=== PATIENT | female | born 1985 | race Caucasian/White ===

== ENCOUNTER 2019-07-29 19:53 | Observation (INO) | payer OTHER ==
[2019-07-29] MEDS ORDERED: Ondansetron INJ* 2 MG/ML VIAL IV ONE (20:25)
[2019-07-29] MEDS ORDERED: Ketorolac INJ* 30 MG/ML 1 ML VIAL IV PUSH ONE (20:25)
[2019-07-29] MEDS ORDERED: NS 0.9% 1000 ML** 1,000 ML IV ONE (20:25)
[2019-07-29 21:24] LABS: ABS Basophils 0.1 10^3/ul (0-0.2); ABS Eosinophils 0.1 10^3/ul (0-0.6); ABS Lymphocytes 1.8 10^3/ul (1.0-4.8); ABS Monocytes 0.6 10^3/ul (0-0.8); ABS Neutrophils 9.2 10^3/ul (1.5-7.7); Eosinophil % 0.8 %; Hematocrit 38 % (35-47); Hemoglobin 13.2 g/dL (12.0-16.0); Lymphocyte % 15.5 %; Mean Corpuscular HGB Conc 35 g/dL (31-36); Mean Corpuscular Hemoglobin 34 pg (27-31); Mean Corpuscular Volume 95 fL (80-97); Mean Platelet Volume 8.4 fL (7.4-10.4); Platelet Count 267 10^3/uL (150-450); Red Blood Count 3.94 10^6 /uL (3.70-4.87); Red Cell Distribution Width 12 % (10-15); White Blood Count 11.8 10^3/uL (3.5-10.8)
[2019-07-29 21:42] LABS: Anion Gap 6 mmol/L (2-11); CO2 Carbon Dioxide 29 mmol/L (22-32); Chloride 101 mmol/L (101-111); Glucose 128 mg/dL (70-100); Potassium 3.6 mmol/L (3.5-5.0); Sodium 136 mmol/L (135-145)
[2019-07-29 21:48] LABS: HCG Pregnancy < 0.60 mIU/mL
[2019-07-29 21:56] LABS: Albumin 4.7 g/dL (3.2-5.2)
[2019-07-29 21:59] LABS: Calcium 9.3 mg/dL (8.6-10.3)
[2019-07-29 22:06] LABS: ALT 11 U/L (7-52); AST 14 U/L (13-39); Alkaline Phosphatase 49 U/L (34-104); BUN/Creatinine Ratio 14.3 (8-20); Blood Urea Nitrogen 14 mg/dL (6-24); C Reactive Protein 1.59 mg/L (<8.01); EGFR African American 79.1 (>60); EGFR Non-African American 65.4 (>60); Globulin 2.4 g/dL (2-4); Total Protein 7.1 g/dL (6.4-8.9)
--- NOTE | 2019-07-29 23:00 | ED ---
Abdominal Pain/Female - HPI Summary HPI Summary: 34-year-old female with no significant past medical history presents to the emergency department today complaining of 8 out of 10 right lower quadrant abdominal pain which began at approximately noon this date. Patient states she has associated nausea without vomiting or fever. Patient has not taken any medication prior to arrival. Patient states she has not had her menses in years due to an IUD. Patient denies other symptoms such as fever, chest pain, vomiting, diarrhea, vaginal bleeding, burning with urination. - History of Current Complaint Chief Complaint: EDAbdPain Stated Complaint: ABD PAIN PER PT Time Seen by Provider: 07/29/19 22:34 Hx Obtained From: Patient Onset/Duration: Sudden Onset Timing: Constant Severity Initially: Moderate Severity Currently: Severe Pain Intensity: 7 Pain Scale Used: 0-10 Numeric Location: Discrete At: RLQ Radiates: No Character: Sharp, Cramping Associated Signs and Symptoms: Positive: Nausea. Negative: Fever, Chest Pain, Back Pain, Urinary Symptoms, Vaginal Bleeding, Vomiting Allergies/Adverse Reactions: Allergies Allergy/AdvReac Type Severity Reaction Status Date / Time No Known Allergies Allergy Verified 06/16/19 11:20 Home Medications: Home Medications SUMAtriptan succinate [Imitrex] 25 mg PO DAILY PRN 07/29/19 [History Confirmed 07/29/19] buPROPion TAB* [Wellbutrin TAB*] 2 tab PO DAILY 07/29/19 [History Confirmed 09/13] oxyCODONE/Acetamin 5/325 MG* [Percocet 5/325 TAB*] 1 tab PO Q6H PRN #8 tab MDD 4 07/30/19 [Rx] PMH/Surg Hx/FS Hx/Imm Hx Endocrine/Hematology History: Denies: Hx Diabetes Cardiovascular History: Denies: Hx Pacemaker/ICD History: Denies: Hx Renal Disease Sensory History: Denies: Hx Hearing Aid Psychiatric History: Denies: Hx Panic Disorder - Surgical History Surgery Procedure, Year, and Place: DENIES Infectious Disease History: No Infectious Disease History: Denies: Traveled Outside the [place] in Last 30 Days - Social History Alcohol Use: Occasionally Substance Use Type: Reports: None Smoking Status (MU): Never Smoked Tobacco Review of Systems Constitutional: Negative Eyes: Negative ENT: Negative Cardiovascular: Negative Respiratory: Negative Positive: Abdominal Pain, Nausea. Negative: Vomiting, Diarrhea Genitourinary: Negative Musculoskeletal: Negative Skin: Negative Neurological/Mental Status: Negative Psychological: Normal All Other Systems Reviewed And Are Negative: Yes Physical Exam - Summary Physical Exam Summary: Inspection the abdomen reveals no masses or ecchymosis. Auscultation reveals normoactive bowel sounds. Patient has pain with palpation of the right lower quadrant with no rebound tenderness, guarding, rigidity. No peritoneal signs. Positive psoas sign. Negative obturator, Rovsing sign. Triage Information Reviewed: Yes Vital Signs On Initial Exam: Initial Vitals Temp Pulse Resp BP Pulse Ox 97.2 F 71 16 115/83 99 07/29/19 19:57 07/29/19 19:57 07/29/19 19:57 07/29/19 19:57 07/29/19 19:57 Vital Signs Reviewed: Yes Appearance: Positive: Well-Appearing, No Pain Distress, Well-Nourished Skin: Positive: Warm, Skin Color Reflects Adequate Perfusion Eyes: Positive: EOMI, GAEL ENT: Positive: Hearing grossly normal Respiratory/Lung Sounds: Positive: Clear to Auscultation, Breath Sounds Present Cardiovascular: Positive: RRR, S1, S2 Abdomen Description: Positive: No Organomegaly, Soft. Negative: CVA Tenderness (R), CVA Tenderness (L), Distended, Guarding Bowel Sounds: Positive: Present Musculoskeletal: Positive: Strength/ROM Intact Neurological: Positive: Sensory/Motor Intact, Alert, Oriented to Person Place, Time, Normal Gait, Facial Symmetry, Speech Normal Psychiatric: Positive: Normal, Affect/Mood Appropriate AVPU Assessment: Alert Procedures - Sedation Patient Received Moderate/Deep Sedation with Procedure: No Diagnostics - Vital Signs Vital Signs Temp Pulse Resp BP Pulse Ox 07/29/19 19:57 97.2 F 71 16 115/83 99 - Laboratory Lab Results: Lab Results 07/29/19 07/29/19 07/29/19 Range/Units 21:15 21:15 21:15 WBC 11.8 H (3.5-10.8) 10^3/uL RBC 3.94 (3.70-4.87) 10^6 /uL Hgb 13.2 (12.0-16.0) g/dL Hct 38 (35-47) % MCV 95 (80-97) fL MCH 34 H (27-31) pg MCHC 35 (31-36) g/dL RDW 12 (10-15) % Plt Count 267 (150-450) 10^3/uL MPV 8.4 (7.4-10.4) fL Neut % (Auto) 77.8 % Lymph % (Auto) 15.5 % [place] % (Auto) 5.2 % Eos % (Auto) 0.8 % Baso % (Auto) 0.7 % Absolute Neuts (auto) 9.2 H (1.5-7.7) 10^3/ul Absolute Lymphs (auto) 1.8 (1.0-4.8) 10^3/ul Absolute Monos (auto) 0.6 (0-0.8) 10^3/ul Absolute Eos (auto) 0.1 (0-0.6) 10^3/ul Absolute Basos (auto) 0.1 (0-0.2) 10^3/ul Absolute Nucleated RBC 0.0 10^3/ul Nucleated RBC % 0.0 Sodium 136 (135-145) mmol/L Potassium 3.6 (3.5-5.0) mmol/L Chloride 101 (101-111) mmol/L Carbon Dioxide 29 (22-32) mmol/L Anion Gap 6 (2-11) mmol/L BUN 14 (6-24) mg/dL Creatinine 0.98 H (0.51-0.95) mg/dL Est GFR ( Amer) 79.1 (>60) Est GFR (Non-Af Amer) 65.4 (>60) BUN/Creatinine Ratio 14.3 (8-20) Glucose 128 H (70-100) mg/dL Lactic Acid 0.9 (0.5-2.0) mmol/L Calcium 9.3 (8.6-10.3) mg/dL Total Bilirubin 0.40 (0.2-1.0) mg/dL AST 14 (13-39) U/L ALT 11 (7-52) U/L Alkaline Phosphatase 49 (34-104) U/L C-Reactive Protein 1.59 (<8.01) mg/L Total Protein 7.1 (6.4-8.9) g/dL Albumin 4.7 (3.2-5.2) g/dL Globulin 2.4 (2-4) g/dL Albumin/Globulin Ratio 2.0 (1-3) Lipase 33 (11.0-82.0) U/L Beta HCG, Quant < 0.60 mIU/mL Result Diagrams: 07/29/19 21:15 07/29/19 21:15 Lab Statement: Any lab studies that have been ordered have been reviewed, and results considered in the medical decision making process. Abdominal Pain Fem Course/Dx - Course Course Of Treatment: Patient was evaluated in the emergency department today for right lower quadrant pain. Vitals are stable. Patient was afebrile. White blood cell count 11.8 with an ANC of 9.2 concerning for possible infectious etiology. CRP within normal limits coagulations studies within normal limits, urinalysis unremarkable for UTI or other pathology. CT scan of the abdomen and pelvis with IV contrast was done which shows evidence of appendicitis. Dr. Ward, general surgery was consulted who desired to admit the patient for surgical intervention tomorrow. He suggested placing the patient on IV Zosyn at this time. Patient admitted to the [facility] for surgical intervention of appendicitis. - Diagnoses Differential Diagnosis: Positive: Appendicitis, Constipation, Diverticulitis, Ovarian Cyst Provider Diagnoses: Appendicitis - Provider Notifications Discussed Care Of Patient With: Ernie Ward - placed the patient on IV Zosyn and admit for surgical intervention. Instructed by Provider To: Admit As Inpatient Discharge ED - Sign-Out/Discharge Documenting (check all that apply): Patient Departure - Discharge Plan Condition: Stable Disposition: ADMITTED TO [facility] - Billing Disposition and Condition Condition: STABLE Disposition: Admitted to [facility]
[2019-07-29] MEDS ORDERED: Iohexol 300* (CONTRAST) 10 ML SDV IV ONE (23:09)
[2019-07-30 00:24] LABS: Urine Appearance Clear; Urine Bilirubin Negative (Negative); Urine Blood Negative (Negative); Urine Color Straw; Urine Glucose Negative (Negative); Urine Ketones Negative (Negative); Urine Nitrite Negative (Negative); Urine Protein Negative (Negative); Urine Specific Gravity 1.021 (1.010-1.030); Urine Urobilinogen Negative (Negative)
[2019-07-30] MEDS ORDERED: Morphine 4 MG/ML VIAL (1 ml) 4 MG/ML VIAL IV ONE (00:55)
[2019-07-30] MEDS ORDERED: Morphine 4 MG/ML VIAL (1 ml) 4 MG/ML VIAL ONE (01:00)
[2019-07-30] MEDS ORDERED: Ondansetron INJ* 2 MG/ML VIAL IV PRN (01:33)
[2019-07-30] MEDS ORDERED: Morphine INJ* 4 MG/ML 1 ML SYRINGE (NEW SYRINGE VERSION) IV PRN (01:33)
[2019-07-30] MEDS ORDERED: Piperacillin/Tazobac (*) 3.375 GM BAG ONE (01:43)
[2019-07-30] MEDS ORDERED: ZOSYN 3.375 GM x ONE DOSE over 30 miuntes IVPB ×2 (01:43)
[2019-07-30] MEDS ORDERED: Morphine INJ* 4 MG/ML 1 ML SYRINGE (NEW SYRINGE VERSION) ONE (03:48)
[2019-07-30 04:08] LABS: Activated Partial Thrombo Time 31.9 seconds (26.0-38.0); INR 1.25 (0.82-1.09)
[2019-07-30] MEDS ORDERED: Piperacillin/Tazobac ADVAN(*) 3.375 GM in NS 0.9% 100 ML* 100 ML IVPB SCH (09:00)
--- NOTE | 2019-07-30 09:59 | HP ---
ADMISSION HISTORY AND PHYSICAL: DATE OF ADMISSION/SURGERY: 07/30/19 The patient was seen on the short-say surgical unit on , 07/30/19. ATTENDING PHYSICIAN: Dr. Kiel Mccarty* (dictated by India Barajas NP). CHIEF COMPLAINT: Persistent right lower quadrant abdominal pain. HISTORY OF PRESENT ILLNESS: The patient is a 34-year-old generally healthy female, who presented to the emergency department around 8 p.m. last night complaining of 8/10 right lower quadrant abdominal pain, which began approximately at noon yesterday. She had associated nausea and chills, but did not vomit at home. She did not take her temperature at home. She had a loose stool yesterday, which is typical for her. She denies any dysuria. She had a CAT scan of the abdomen and pelvis, which was consistent with appendicitis and has been reviewed this morning by Dr. Mccarty. Her white blood cell count was 11.8 with no left shift. Electrolytes were within normal limits and creatinine was mildly elevated at 0.98. CRP was within normal limits and lactic acid was 0.9. test was negative and she does have an IUD. PAST MEDICAL HISTORY: Endometriosis, sleep apnea requiring CPAP, and migraine headaches. PAST SURGICAL HISTORY: None. OB HISTORY: 0. She is up-to-date with pelvic exam and has an IUD. MEDICATIONS: 1. Bupropion 2 tablets p.o. daily. 2. She also takes supplements of magnesium. 3. CoQ 10. 4. Vitamin B, unspecified. ALLERGIES: No known drug allergies. REVIEW OF SYSTEMS: A 14-point review of systems conducted negative other than as mentioned in history of present illness. General: No bleeding tendencies. No history of blood transfusions. No history of deep vein thrombosis or pulmonary embolism. She has never received general anesthesia. FAMILY HISTORY: Mother is living and has some type of autoimmune disorder. Father in his 50s with a history of leukemia. 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 She drinks less than 1 alcoholic beverage per week and denies the use of substances. PHYSICAL EXAMINATION GENERAL SURVEY: The patient is a 34-year-old well developed, well nourished, in no acute distress. VITAL SIGNS: Height 5 feet, weight 142 pounds, body mass index 27.7, blood pressure 98/66, pulse 70 and regular, respiratory rate 16, temperature 98.4 tympanic, O2 saturation on room air 97%. SKIN: Warm, dry, intact. HEENT: Benign. NECK: Supple. LUNGS: Breath sounds bilaterally clear and equal. HEART: Regular rate and rhythm. No murmurs or rubs appreciated. ABDOMEN: Hypoactive bowel sounds, flat, soft, exquisitely tender in the right lower quadrant over McBurney's point with guarding. No obvious masses or organomegaly, but exam is limited by the patient's discomfort. PELVIC: Deferred. RECTAL: Deferred. EXTREMITIES: Warm without edema or skin ulceration. NEUROLOGIC: Alert and oriented x3. Steady gait. IMPRESSION: Acute appendicitis. PLAN: Robotic appendectomy today by Dr. Mccarty. She will continue with IV fluid resuscitation as her blood pressure was 77/46 early this morning and she has responded to bolus of normal saline with her blood pressure coming up to 98/ 66; she will have IV antibiotics, Dr. Mccarty was at the bedside to discuss the nature and rationale for this surgery. All of her questions were answered and she agreed to proceed as recommended. TIME SPENT: Sixty minutes with greater than 50% and [id number] history taking , physical examination and coordination of care. SHAYNE BARAJAS NP [id number]/[facility] #: [id number] [place]
[2019-07-30] MEDS ORDERED: NS 0.9% 1000 ML** 1,000 ML IV SCH ×3 (10:30→13:33)
[2019-07-30] MEDS ORDERED: Ketorolac INJ* 30 MG/ML 1 ML VIAL ONE (12:04)
[2019-07-30] MEDS ORDERED: Lidocaine 2% MPF* 2 ML VIAL ONE (12:17)
[2019-07-30] MEDS ORDERED: Midazolam* 1 MG/ML 5 ML VIAL (5 MG) ONE (12:17)
[2019-07-30] MEDS ORDERED: Dexamethasone IV* 4 MG/ML 1 ML (4 MG) ONE (12:17)
[2019-07-30] MEDS ORDERED: fentaNYL* 50 MCG/ML 2 ML VIAL (100 MCG VIAL) ONE (12:17)
[2019-07-30] MEDS ORDERED: Propofol* 10 MG/ML 20 ML BTL ONE (12:17)
[2019-07-30] MEDS ORDERED: Ondansetron INJ* 2 MG/ML VIAL ONE (12:17)
[2019-07-30] MEDS ORDERED: Rocuronium* 10 MG/ML VIAL ONE (12:22)
[2019-07-30] MEDS ORDERED: Famotidine IV* 10 MG/ML 2 ML (20 mg) IV ONE (12:36)
[2019-07-30] MEDS ORDERED: Buffered Lidocaine 1% SYRIN* 1 ML/SYRINGE INTRADERM ONE (12:36)
[2019-07-30] MEDS ORDERED: EPHEDrine (Pressors)* 50 MG/ML VIAL ONE (12:56)
[2019-07-30] MEDS ORDERED: HYDROmorphone INJ1* 1 MG/ML SYRINGE IV PRN (13:27)
[2019-07-30] MEDS ORDERED: Naloxone* 0.4 MG/ML 1 ML VIAL IV PRN (13:27)
[2019-07-30] MEDS ORDERED: fentaNYL* 50 MCG/ML 2 ML VIAL (100 MCG VIAL) IV PRN (13:27)
[2019-07-30] MEDS ORDERED: Acetaminophen IV 1GM/100ML * 1,000 MG/100 ML VIAL IVPB ONE (13:27)
[2019-07-30] MEDS ORDERED: DiMENhydriNATE IV* 50 MG/ML VIAL IV PUSH PRN (13:27)
[2019-07-30] MEDS ORDERED: Sugammadex * 500 MG/5 ML VIAL IV PUSH ONE (13:37)
[2019-07-30] MEDS ORDERED: Polyethylene Glycol 3350* 17 GM PACKET PO SCH (15:00)
[2019-07-30 16:21] VITALS: BP 104/70
--- NOTE | 2019-07-31 02:22 | OP ---
OPERATIVE REPORT: DATE OF OPERATION: 07/30/19 - Inpatient, SSU 338-01 DATE OF : 87 SURGEON: Kiel Mccarty MD DOCK LOADER: MEHUL Otoole PRE-OP DIAGNOSIS: Appendicitis. POST-OP DIAGNOSIS: Appendicitis. OPERATIVE PROCEDURE: Robotic appendectomy. INDICATIONS FOR PROCEDURE: Appendicitis. Risks including, but not limited to bleeding, infection, injury to intraabdominal contents including the bowel explained to the patient, who seemed to understand and agreed to the procedure and all questions were answered. DESCRIPTION OF PROCEDURE: The patient was taken to the operating room, placed supine and preoperative antibiotics had been given. After the successful induction of general endotracheal anesthesia, the abdomen was prepped and draped in sterile fashion. A left upper quadrant 5 mm Optiview trocar was placed under direct visualization of the camera using a bladeless Optiview trocar. Pneumoperitoneum was achieved to 15 mmHg. The camera was placed in the abdomen. The abdomen was scanned. There was no obvious injury from trocar placement. A 12-mm upper midline/right upper quadrant trocar was placed and a 8 -mm left lower quadrant trocar was placed. The 5 mm trocar was placed with an 8 -mm robotic trocar. The patient was placed in the slight Trendelenburg position , tilted towards the left. The robot was brought and docked. The appendix was easily identified and elevated. The base was isolated, divided with a 45-mm stapler with blue load. The tip of the appendix appeared inflamed. The mesoappendix was taken using bipolar cautery and scissors with cautery. No bleeding was noted for the case. The appendix was placed in an Endobag and removed through the 12 mm port site. The right ovary, tube, and uterus appeared normal. There was some fluid in the pelvis, not purulent. This was mopped up with a 4x4 sponge. The abdomen was scanned. No obvious injuries or other abnormalities were noted. She tolerated the procedure well. The trocars were removed after pneumoperitoneum was released from the abdomen. The skin was closed at each site using Monocryl and glue. The patient tolerated the procedure well. She was taken to Recovery in stable condition. [id number]/[facility] #: [id number] [facility]
== END 2019-07-30 16:20 | disposition home or self-care (01) ==
LOC: ED 19:53 → INTOOBSV 07-30 01:33 → SSU 07-30 01:33
PROVIDERS: ADMIT Surgery; ATTEND Surgery
DX: K37 Unspecified appendicitis (principal); R10.31 Right lower quadrant pain; Z79.899 Other long term (current) drug therapy
CPT/HCPCS: 36415; 74177; 80053; 81003; 83605; 83690; 84702; 85025; 85610; 85730; 86140; 88304; 96361; 96374; 96375; 96376; 99283; G0378; J1100; J1885; J2250; J2270; J2405; J2543; J2704; J3010; Q9967